=== PATIENT | male | born 1945 | race Caucasian/White ===

== ENCOUNTER 2018-09-21 23:43 | Observation (INO) ==
[2018-09-22] MEDS ORDERED: Naloxone 0.4 MG/ML INJ IVP PRN (07:51)
[2018-09-22 08:40] LABS: Hemoglobin 13.1 g/dL (12.9-16.9); Mean Corpuscular HGB Conc 33.6 g/dL (31.6-35.5); Mean Corpuscular Hemoglobin 30.6 pg (28.0-33.3); Mean Corpuscular Volume 91.1 fL (83.0-100.0); Mean Platelet Volume 9.2 fL (9.4-12.4); Platelet Count 161 K/mcL (140-400); Red Blood Count 4.28 M/mcL (4.19-5.50); Red Cell Distribution Width 13.4 % (11.5-14.5)
[2018-09-22 09:00] LABS: BUN/Creatinine Ratio 13 (6-26); Blood Urea Nitrogen 12 mg/dL (8-23); Carbon Dioxide 23 mEq/L (23-29); Chloride 108 mEq/L (98-107); Glucose 97 mg/dL (70-105); Osmolality,Calculated 292 (280-300); Potassium 3.9 mEq/L (3.5-5.1); Sodium 141 mEq/L (136-145); eGFR For Non-African Americans > 60 (> 60)
--- NOTE | 2018-09-22 09:25 | Internal Med History&Physical ---
<Evin Trevino - Last Filed: 09/22/18 09:23> Date of Encounter: 09/22/18 Time of Encounter: 09:23 Internal Medicine - H&P: HPI Chief complaint: Constipation Admitted From: Hospital to Hospital Transfer Plans for Post Hospital Care: Home History of present illness: Mr. Lion is a 73 year old male history of CVA, hypertension, coronary artery disease, hyperlipidemia presents with chief complaint of constipation 7 days. Patient reports she has had cramping abdominal pain and has been unable to have a bowel movement. He is tried suppositories at home without success. He has a history of hemorrhoids and does have some blood when wiping after having bowel movement. He initially presented to [facility]. Patient had a rectal exam by emergency department and [facility] and was found to have large block of large pellet stool in the rectal vault and underwent soapsuds enema. Thereafter he had a large maroon-colored stool. Due to this patient was transferred to [facility] for serial hemoglobins and further evaluation and possible endoscopy. His initial hemoglobin was 13. He is hemodynamically stable. He denies previous endoscopies. Patient is on Plavix and aspirin for history of CVA. Past Med Surg Social Fam HX - Past Medical History Medical history: CVA, hyperlipidemia, hypertension, myocardial infarction Psychiatric history: no psych history - Past Surgical History Surgical History: appendectomy - Social History Smoking Status: Former smoker Smokeless Tobacco Status: No Alcohol use: occasionally Drug use: none - Family History Father Adopted: [place]: BRITNEY Family Member Ethnicity: Non- Living Status: Age at : 63 Cause of : HEART PROBLEMS - HIGH HLD Hx Family Cardiac Disorders: Yes Hx Family Respiratory Disorders: No Hx Family Cancer: No Hx Family GI Disorders: No Hx Family Genitourinary Disorders: No Hx Family Endocrine Disorder: No Hx Family Musculoskeletal Disorders: No Hx Family Neuromuscular Disorders: No Hx Family Neurologic Disorders: No Hx Family HEENT Disorders: No Hx Family Autoimmune Disorders: No Hx Family Reproductive Disorders: No Hx Family Psychosocial Disorders: No Hx Family Medical Disorders: No Internal Medicine - H&P: Meds Clopidogrel [Plavix] 75 mg PO DAILY 06/21/18 [History] Aspirin [Lo-Dose Aspirin EC] 81 mg PO DAILY 09/21/18 [History] Atorvastatin [Lipitor] 20 mg PO HS 09/21/18 [History] Cholecalciferol (D-3) [Vitamin D] 1,000 unit PO DAILY 09/21/18 [History] Docusate [Colace] 200 mg PO BID 09/21/18 [History] Lisinopril [Zestril] 20 mg PO DAILY 09/22/18 [History] Allergy/AdvReac Type Severity Reaction Status Date / Time No Known Allergies Allergy Verified 06/21/18 06:51 All Systems PM: A 10-system review of systems was performed and is negative for pertinent findings except as documented above in the HPI. Review of systems: Constitutional: Denies fever, chills HEENT: Denies headache, trauma, blurry vision, eye discharge, ear pain, ear discharge neck pain, sore throat, rhinorrhea Heart: Denies chest pain palpitations, LE edema Lungs: Denies shortness of breath cough Abdomen: Reports abdominal pain , constipation. Denies nausea vomiting diarrhea MSK: Denies back pain, falls, joint pain Kidney: Denies dysuria, hematuria Skin: Denies rash, ulcers Neuro: Denies numbness and tingling Psych: denies axniety, depression - Constitutional Vitals: Temp Pulse Resp BP Pulse Ox 97.6 F 71 16 183/80 99 09/22/18 06:38 09/22/18 06:38 09/22/18 06:38 09/22/18 06:38 09/22/18 06:38 Exam: General: pleasant, without distress HEENT: Head atraumatic, normocephalic, EOMI, PERRL, absent ear discharge or trauma, Moist Mucous Membranes, uvula midline Neck: nontender to palpation, absent lymphadenopathy, Cardiovascualr: Regular rate and rhythm with no murmur, absent gallops or rubs, absent pedal edema, radial pulses 2 out of 4 Lungs: Clear to auscultation bilaterally, not in respiratory distress Abdomen: Soft nontender, nondistended positive bowel sounds, absent hepatomegaly Skin: warm and dry, absent rash, absent open wounds and nodules MSK: absent clubbing, cyanosis, joints without swelling Neuro: Chronic: Left upper extremity strength 3/5, left lower extremity strength 3/5, left facial droop, slurred speech. Patient's right upper and lower extremity strength is 5 out of 5 Psych: good insight and judgment Internal Med - H&P Results - Labs CBC & Chem 7: 09/22/18 08:22 09/22/18 08:22 Labs: Short CBC 09/22/18 Range/Units 08:22 WBC 11.8 H D (4.3-11.1) K/mcL Hgb 13.1 (12.9-16.9) g/dL Hct 39.0 (37.5-50.1) % Plt Count 161 (140-400) K/mcL BMP 09/22/18 08:22 Sodium 141 Potassium 3.9 Chloride 108 H Carbon Dioxide 23 BUN 12 Creatinine 0.90 Glucose 97 Calcium 9.0 - Assessment and Plan (1) Rectal bleeding Current Visit: Yes Status: Acute Assessment and plan: Patient presents with chief complaint of constipation and underwent soapsuds enema and thereafter had a bloody bowel movement. He is hemodynamically stable PT/INR within normal limits CT abdomen and pelvis showed focal hyperattenuation at the rectum/anus, unremarkable fecal burden at the rectosigmoid colon Started on Protonix, nothing by mouth, surgery consulted for evaluation. (2) History of CVA (cerebrovascular accident) Current Visit: Yes Status: Acute Assessment and plan: Patient has a history of CVA with residual left-sided deficits as noted on exam Were holding aspirin and Plavix secondary to bleeding Continue statin (3) Hypertension Current Visit: Yes Status: Acute Assessment and plan: Patient had elevated blood pressure of 183/80 this morning We will resume lisinopril When necessary labetalol Qualifiers: Hypertension type: essential hypertension Qualified Code(s): I10 - Essential (primary) hypertension (4) Constipation Current Visit: Yes Status: Acute Assessment and plan: There is a concern that patient has not had a colonoscopy since turning 51. Furthermore the CT scan shows a hyperattenuation and patient presented with constipation. concern is if this could be a mass causing constipation instead of large stool burden. Surgery consulted. Qualifiers: Constipation type: unspecified constipation type Qualified Code(s): K59.00 - Constipation, unspecified (5) DVT prophylaxis Current Visit: Yes Status: Acute Assessment and plan: EPCDs (6) HLD (hyperlipidemia) Current Visit: Yes Status: Acute Assessment and plan: Continue atorvastatin Qualifiers: Hyperlipidemia type: pure hypercholesterolemia Qualified Code(s): E78.00 - Pure hypercholesterolemia, unspecified; E78.0 - Pure hypercholesterolemia - Time Spent With Patient Total time spent is greater than 50% in coordination of care (as documented) at patient's floor/unit and/or counseling patient: <Madeleine Mcadams - Last Filed: 09/22/18 12:53> Date of Encounter: 09/22/18 Internal Medicine - H&P: HPI History of present illness: Mr. Lion is a 73 year old male All Systems PM: A 10-system review of systems was performed and is negative for pertinent findings except as documented above in the HPI. - Constitutional Vitals: Temp Pulse Resp BP Pulse Ox 97.7 F 83 16 164/78 96 09/22/18 11:05 09/22/18 11:05 09/22/18 11:05 09/22/18 11:05 09/22/18 11:05 Internal Med - H&P Results - Labs CBC & Chem 7: 09/22/18 08:22 09/22/18 08:22 Labs: Short CBC 09/22/18 Range/Units 08:22 WBC 11.8 H D (4.3-11.1) K/mcL Hgb 13.1 (12.9-16.9) g/dL Hct 39.0 (37.5-50.1) % Plt Count 161 (140-400) K/mcL BMP 09/22/18 08:22 Sodium 141 Potassium 3.9 Chloride 108 H Carbon Dioxide 23 BUN 12 Creatinine 0.90 Glucose 97 Calcium 9.0 - Time Spent With Patient Total time spent is greater than 50% in coordination of care (as documented) at patient's floor/unit and/or counseling patient: - Attending Attestation I examined this patient and my medical decision-making was reviewed with the Resident Physician Dr Trevino. I agree with the documented findings, disposition and treatment plan as described except to the extent set forth below. Mr Lion has pmhx CVA with residual left weakness, facial droop and dysphasia. He presented with adb pain and constipation to OSH. He had CT scan showing rectal hyperattneuation and stool. He has addl history of hemorrhoids. Soap suds enema preformed at OSH with bloody water after enema. He was transferred to [facility] for further work up and treatment Awake and in no distress. denies bleeding further, abd pain, n/v/diarrhea. No fevers or chills. denies presyncope, cp or sob. gen- awake, nad, appears stated age cv- rrr, no murmurs appreciated, no le edema lungs- ctabl, no wheezing or rhonchi, normal resp effort abd- soft, nt, nd decreased bs skin- warm, dry, no pallor Possible Rectal Bleeding Hx hemorrhoids Constipation Rectal thickening on CT scan -surg consult to see if needs scope--hemorrhoidal bleeding vs mass or other gib? -PPI, npo, serial h/hs -hold home asa and plavix at this time while cont to monitor HTN- BP elevated, cont home meds and monitor for adjustments further idagnoses and plan as noted by resident
[2018-09-22] MEDS: Lisinopril 20 MG TABLET PO SCH (09:49)
--- NOTE | 2018-09-22 11:05 | AcuteCare Surgery Consult Note ---
<Juhi Cherry - Last Filed: 09/22/18 14:40> Date of Encounter: 09/22/18 Time of Encounter: 11:02 Assessment and Plan (1) Lower GI bleeding Current Visit: Yes Status: Acute Is a 73-year-old male with past medical history significant for CVA, AL, hypertension, hyperlipidemia who initially presented in the [facility] ED complaining of constipation. Complaining of urge to defecate and cramping for the past week Patient additionally has history of hemorrhoids. Has noted specks of blood on toilet paper and toilet in the past. Managed with Colace 200 mg twice a day. He is additionally on aspirin and Plavix due to history of CVA. States he has never had endoscopy or colonoscopy in the past - Soapsuds enema was given in the ED, and maroon-colored blood emerge from the rectum afterwards along with stool - CT of the abdomen and pelvis did show focal hyperattenuation of the rectum/anus suggestive of being related to bleeding hemorrhoids. However underlying mass could not be ruled out. - Hb/Hct = 13.5/40.1 - Currently no acute distress, resting comfortably at bedside PLAN: Given the patient is currently asymptomatic, and his hemoglobin has remained stable after 2 different blood draws, it is unlikely the patient needs any fu rther intervention at this time. - We will plan to have patient follow-up outpatient for routine colonoscopy - Monitor Hb/Hct; monitor for signs of hemodynamic instability; recommended at least 1 further CBC prior to discharge - Protonix BID - Stool softener twice a day - Patient may advance to regular diet at this time - Otherwise surgery will sign off at this time; please reconsult as necessary; patient may be discharged from a surgical standpoint History of Present Illness Consult date: 09/22/18 Reason for consult: other (GI bleed) Requesting physician: Evin Trevino History of present illness: This is a 73-year-old male with past medical history significant for CVA, AL, hypertension, hyperlipidemia who initially presented to [facility] ED complaining of constipation. Patient states that for the past 1 week he had been having cramping plus urge to defecate, but was unable to do so. He initially also noted that when he wiped himself, he would notice specks of blood on the toilet paper and drips of blood on the toilet. He has had this problem in the past, but has never thought much of it. States that he normally has bowel movements regularly with regular consistency. He does take docusate 200 mg twice a day, and did try a suppository prior to arrival without relief. Patient denied any fevers/chills, headaches, nausea, vomiting, hematemesis, dysuria, hematuria. Additionally he has not been taking any pain medications of recent. Initial exam at [facility] showed evidence of fecal impaction with brown stool, external hemorrhoids, tenderness. Patient was given soapsuds enema in the ED. After enema was given, patient began to have maroon-colored stool with passages of large amounts of brown stool. Patient was then given IV fluids and routine lab work was obtained. Patient's hemoglobin and hematocrit = 13.5/40.1. CT of the abdomen and pelvis did show focal hyperattenuation of the rectum/anus suggestive of being related to bleeding hemorrhoids. However underlying mass could not be ruled out. Pt was transferred to [facility] for further evaluation of lower GI bleeding, serial Hb/Hct, and start bowel regimen. Surgery was consulte d due to GI bleed. At time of my examination, patient is in no acute distress. States that he feel s fine. He has not had a bowel movement since yesterday in the [facility] ED. He denies any abdominal pain, nausea, vomiting at this time. He states that he has been passing gas. He does confirm that he takes aspirin and Plavix due to history of CVA. Pt states that he has never had endoscopy or colonoscopy in the past. Past Med Surg Social Fam HX - Past Medical History Attestation: Yes The following information was validated with the patient. Source: patient, old records reviewed Medical history: CVA, hyperlipidemia, hypertension, myocardial infarction Psychiatric history: no psych history - Past Surgical History Surgical History: appendectomy - Social History Smoking Status: Former smoker Smokeless Tobacco Status: No Alcohol use: occasionally Drug use: none - Family History Father Adopted: [place]: [place] Family Member Ethnicity: Non- Living Status: Age at : 64 Cause of : HEART PROBLEMS - HIGH HLD Hx Family Cardiac Disorders: Yes Hx Family Respiratory Disorders: No Hx Family Cancer: No Hx Family GI Disorders: No Hx Family Genitourinary Disorders: No Hx Family Endocrine Disorder: No Hx Family Musculoskeletal Disorders: No Hx Family Neuromuscular Disorders: No Hx Family Neurologic Disorders: No Hx Family HEENT Disorders: No Hx Family Autoimmune Disorders: No Hx Family Reproductive Disorders: No Hx Family Psychosocial Disorders: No Hx Family Medical Disorders: No Medications and Allergies Clopidogrel [Plavix] 75 mg PO DAILY 06/21/18 [History] Aspirin [Lo-Dose Aspirin EC] 81 mg PO DAILY 09/21/18 [History] Atorvastatin [Lipitor] 20 mg PO HS 09/21/18 [History] Docusate [Colace] 200 mg PO BID 09/21/18 [History] Ergocalciferol (VITAMIN D2) [Vitamin D] 400 unit PO DAILY 09/22/18 [History] Ibuprofen [Motrin] 400 mg PO TID PRN 09/22/18 [History] Lisinopril [Zestril] 20 mg PO DAILY 09/22/18 [History] Loratadine [Allergy Relief] 10 mg PO DAILY 09/22/18 [History] Allergy/AdvReac Type Severity Reaction Status Date / Time No Known Allergies Allergy Verified 09/22/18 15:19 Review of Systems All systems PM: reviewed and no additional remarkable complaints except as stated All systems PM: The remainder of the systems were reviewed and are negative - Constitutional no anorexia, no chills, no fatigue, no headache(s), no lethargy, no malaise - EENT Nose, mouth and throat: no dizziness, no headache(s), no nasal congestion - Cardiovascular no chest pain, no chest pain at rest, no chest pain with activity, no dyspnea, no dyspnea on exertion, no irregular heart rhythm, no radiating jaw, neck or arm pain, no lightheadedness, no palpitations, no rapid heart rate, no syncope - Respiratory no cough, no dyspnea, no wheezing - Gastrointestinal constipation, excessive flatus, hematochezia, no abdominal pain, no melena, no nausea, no vomiting - Genitourinary no dysuria, no hematuria - Musculoskeletal no back pain - Integumentary no rash - Neurological no behavioral changes, no confusion, no dizziness, no headache(s), no syncope, no weakness - Psychiatric no change in appetite - Endocrine no fatigue General Surgery Exam Initial Vital Signs Temp Pulse Resp BP Pulse Ox 98.0 F 87 16 179/77 99 09/22/18 04:05 09/22/18 04:05 09/22/18 04:05 09/22/18 04:05 09/22/18 04:05 - General physical appearance well developed, well nourished, no distress, no pain - Eyes normal ocular movement - ENT atraumatic, normocephalic - Neck trachea midline - Respiratory normal expansion, normal respiratory effort, clear to auscultation - Cardiovascular Cardiovascular exam: Present: RRR, regular rhythm, murmurs (2/6 systolic murmur noted at the right parasternal second intercostal space) - Expanded Cardiovascular Exam Peripheral pulses: 2+: Radial (L), Radial (R) - Abdomen Abdomen general surgery: Present: bowel sounds present, soft, non tender - Integumentary Integumentary general surgery: Present: warm and dry, no abnormal pigmentation - Neurologic Present: other (Left-sided deficits that have persisted since CVA in 2007) - Psychiatric Psychiatric general surgery: Present: A&Ox3, appropriate, oriented to person, oriented to place, oriented to time, speech is normal (Speech is slurred, but understandable), memory intact Exam Initial Vital Signs Temp Pulse Resp BP Pulse Ox 98.0 F 87 16 179/77 99 09/22/18 04:05 09/22/18 04:05 09/22/18 04:05 09/22/18 04:05 09/22/18 04:05 Results - Labs 09/22/18 08:22 09/22/18 08:22 Abnormal lab results WBC 11.8 K/mcL (4.3-11.1) H D 09/22/18 08:22 MPV 9.2 fL (9.4-12.4) L 09/22/18 08:22 Chloride 108 mEq/L (98-107) H 09/22/18 08:22 Diabetes panel 09/22/18 Range/Units 08:22 Sodium 141 (136-145) mEq/L Potassium 3.9 (3.5-5.1) mEq/L Chloride 108 H (98-107) mEq/L Carbon Dioxide 23 (23-29) mEq/L BUN 12 (8-23) mg/dL Creatinine 0.90 (0.70-1.30) mg/dL Glucose 97 (70-105) mg/dL Calcium 9.0 (8.6-10.3) mg/dL Calcium panel 09/22/18 Range/Units 08:22 Calcium 9.0 (8.6-10.3) mg/dL Pituitary panel 09/22/18 Range/Units 08:22 Sodium 141 (136-145) mEq/L Potassium 3.9 (3.5-5.1) mEq/L Chloride 108 H (98-107) mEq/L Carbon Dioxide 23 (23-29) mEq/L BUN 12 (8-23) mg/dL Creatinine 0.90 (0.70-1.30) mg/dL Glucose 97 (70-105) mg/dL Calcium 9.0 (8.6-10.3) mg/dL Adrenal panel 09/22/18 Range/Units 08:22 Sodium 141 (136-145) mEq/L Potassium 3.9 (3.5-5.1) mEq/L Chloride 108 H (98-107) mEq/L Carbon Dioxide 23 (23-29) mEq/L BUN 12 (8-23) mg/dL Creatinine 0.90 (0.70-1.30) mg/dL Glucose 97 (70-105) mg/dL Calcium 9.0 (8.6-10.3) mg/dL All other labs normal. - Imaging CT scan - abdomen: report reviewed CT scan - pelvis: report reviewed (CT of the abdomen and pelvis did show focal hyperattenuation of the rectum/anus suggestive of being related to bleeding hemorrhoids. However underlying mass could not be ruled out.) Consult Discharge Plan - Plan Referrals: NONE,PCP [Primary Care Provider] - <Trace Patterson - Last Filed: 09/23/18 06:39> Date of Encounter: 09/22/18 Review of Systems All systems PM: The remainder of the systems were reviewed and are negative General Surgery Exam Initial Vital Signs Temp Pulse Resp BP Pulse Ox 98.0 F 87 16 179/77 99 09/22/18 04:05 09/22/18 04:05 09/22/18 04:05 09/22/18 04:05 09/22/18 04:05 Exam Initial Vital Signs Temp Pulse Resp BP Pulse Ox 98.0 F 87 16 179/77 99 09/22/18 04:05 09/22/18 04:05 09/22/18 04:05 09/22/18 04:05 04/21/19 04:05 Results - Labs 09/23/18 04:34 09/22/18 08:22 Abnormal lab results WBC 11.8 K/mcL (4.3-11.1) H D 09/22/18 08:22 Hgb 12.7 g/dL (12.9-16.9) L 09/23/18 04:34 MPV 9.2 fL (9.4-12.4) L 09/22/18 08:22 Chloride 108 mEq/L (98-107) H 09/22/18 08:22 Diabetes panel 09/22/18 Range/Units 08:22 Sodium 141 (136-145) mEq/L Potassium 3.9 (3.5-5.1) mEq/L Chloride 108 H (98-107) mEq/L Carbon Dioxide 23 (23-29) mEq/L BUN 12 (8-23) mg/dL Creatinine 0.90 (0.70-1.30) mg/dL Glucose 97 (70-105) mg/dL Calcium 9.0 (8.6-10.3) mg/dL Calcium panel 09/22/18 Range/Units 08:22 Calcium 9.0 (8.6-10.3) mg/dL Pituitary panel 09/22/18 Range/Units 08:22 Sodium 141 (136-145) mEq/L Potassium 3.9 (3.5-5.1) mEq/L Chloride 108 H (98-107) mEq/L Carbon Dioxide 23 (23-29) mEq/L BUN 12 (8-23) mg/dL Creatinine 0.90 (0.70-1.30) mg/dL Glucose 97 (70-105) mg/dL Calcium 9.0 (8.6-10.3) mg/dL Adrenal panel 09/22/18 Range/Units 08:22 Sodium 141 (136-145) mEq/L Potassium 3.9 (3.5-5.1) mEq/L Chloride 108 H (98-107) mEq/L Carbon Dioxide 23 (23-29) mEq/L BUN 12 (8-23) mg/dL Creatinine 0.90 (0.70-1.30) mg/dL Glucose 97 (70-105) mg/dL Calcium 9.0 (8.6-10.3) mg/dL All other labs normal. - Attending Attestation I examined this patient and my medical decision-making was reviewed with the Resident Physician. I agree with the documented findings, disposition and treatment plan as described except to the extent set forth below. I reviewed the above assessment and evaluation with the resident and agree with the above plan. Patient presented to the hospital due to constipation and after having an enema he had rectal bleeding. He states he has never had rectal bleeding in the past. He denied any abdominal pain during that episode and has never had a colonoscopy. He denies any family history colon cancer. On examination is nontender with no symptoms of nausea or vomiting. No palpable masses identified. Hemoglobin has been stable at approximately 12.7. I think it would be reasonable to repeat the CBC either later today or tomorrow morning and if normal have the patient follow-up with surgery as an outpatient for colonoscopy. I think his rectal bleeding is likely due to the hard stool that passed through the colon causing irritation and disruption of the mucosa. Will follow from a distance. Thank you very much.
--- NOTE | 2018-09-22 15:26 | Discharge Summary ---
<Evin Trevino - Last Filed: 09/23/18 08:52> - NOTES TO OUTPATIENT PROVIDER Notes to Outpatient Provider: will need outpatient colonoscopy Orders not resulted at time of discharge: Pending orders 09/22/18 15:23 H/H [Hemoglobin and Hematocrit] [HEME] Stat 09/23/18 04:00 H/H [Hemoglobin and Hematocrit] [HEME] AM 0400 Date of Encounter: 09/23/18 Time of Encounter: 07:27 - Discharge Diagnosis (1) Rectal bleeding Priority: Primary Status: Resolved (2) History of CVA (cerebrovascular accident) Priority: Secondary Status: Chronic (3) Hypertension Priority: Secondary Status: Chronic Qualifiers: Hypertension type: essential hypertension Qualified Code(s): I10 - Essential (primary) hypertension (4) Constipation Priority: Secondary Status: Inactive Qualifiers: Constipation type: unspecified constipation type Qualified Code(s): K59.00 - Constipation, unspecified (5) DVT prophylaxis Priority: Secondary Status: Acute (6) HLD (hyperlipidemia) Priority: Secondary Status: Acute Qualifiers: Hyperlipidemia type: pure hypercholesterolemia Qualified Code(s): E78.00 - Pure hypercholesterolemia, unspecified; E78.0 - Pure hypercholesterolemia Hospital course: Mr. Lion is a 73 year old male history of CVA, hypertension, coronary artery disease, hyperlipidemia presents with chief complaint of constipation 7 days. Patient reports she has had cramping abdominal pain and has been unable to have a bowel movement. He is tried suppositories at home without success. He has a history of hemorrhoids and does have some blood when wiping after having bowel movement. He initially presented to [facility]. Patient had a rectal exam by emergency department and [facility] and was found to have large block of large pellet stool in the rectal vault and underwent soapsuds enema. Thereafter he had a l arge maroon-colored stool. Due to this patient was transferred to [facility] for serial hemoglobins and further evaluation and possible endoscopy. His initial hemoglobin was 13. He is hemodynamically stable. He denies previous endoscopies. Patient is on Plavix and aspirin for history of CVA. Today's surgery saw patient. Patient was given stool softener and a large bowel movement. He recommended outpatient colonoscopy. The recommended if hemoglobin is stable he is able to be discharged. Patient's repeat hemoglobin was stable. Discharge discussed with: patient, family - Time Spent with Patient Total time spent providing and/or coordinating discharge services: - Discharge Medications Prescriptions: New Docusate [Colace] 100 mg PO BID #60 capsule Continue Lisinopril [Zestril] 20 mg PO DAILY Ergocalciferol (VITAMIN D2) [Vitamin D] 400 unit PO DAILY Ibuprofen [Motrin] 400 mg PO TID PRN PRN Reason: Mild To Moderate Pain Loratadine [Allergy Relief] 10 mg PO DAILY Clopidogrel [Plavix] 75 mg PO DAILY Docusate [Colace] 200 mg PO BID Atorvastatin [Lipitor] 20 mg PO HS Aspirin [Lo-Dose Aspirin EC] 81 mg PO DAILY Home Medications: Clopidogrel [Plavix] 75 mg PO DAILY 06/21/18 [History] Aspirin [Lo-Dose Aspirin EC] 81 mg PO DAILY 09/21/18 [History] Atorvastatin [Lipitor] 20 mg PO HS 09/21/18 [History] Docusate [Colace] 200 mg PO BID 09/21/18 [History] Ergocalciferol (VITAMIN D2) [Vitamin D] 400 unit PO DAILY 09/22/18 [History] Ibuprofen [Motrin] 400 mg PO TID PRN 09/22/18 [History] Lisinopril [Zestril] 20 mg PO DAILY 09/22/18 [History] Loratadine [Allergy Relief] 10 mg PO DAILY 09/22/18 [History] Docusate [Colace] 100 mg PO BID #60 capsule 09/23/18 [Rx] Allergies/Adverse Reactions: Allergy/AdvReac Type Severity Reaction Status Date / Time No Known Allergies Allergy Verified 09/22/18 15:19 Date of admission: 09/22/18 03:48 Primary care physician: PCP NONE Consults: 09/22/18 07:53 Consult to Surgery [CONS] Routine Consulting Provider: Acute Care Surgery Reason for Consult: gi bleed. Call Completed: Yes Discharging clinician: Evin Trevino Anticipated date of discharge: 09/22/18 - Constitutional Vitals: Temp Pulse Resp BP Pulse Ox 97.4 F L 77 16 170/74 97 09/22/18 14:35 09/22/18 14:35 09/22/18 14:35 09/22/18 14:35 09/22/18 14:35 Exam: General: pleasant, without distress HEENT: Head atraumatic, normocephalic, EOMI, PERRL, absent ear discharge or trauma, Moist Mucous Membranes, uvula midline Neck: nontender to palpation, absent lymphadenopathy, Cardiovascualr: Regular rate and rhythm with no murmur, absent gallops or rubs, absent pedal edema, radial pulses 2 out of 4 Lungs: Clear to auscultation bilaterally, not in respiratory distress Abdomen: Soft nontender, nondistended positive bowel sounds, absent hepatomegaly Skin: warm and dry, absent rash, absent open wounds and nodules MSK: absent clubbing, cyanosis, joints without swelling Neuro: Chronic: Left upper extremity strength 3/5, left lower extremity strength 3/5, left facial droop, slurred speech. Patient's right upper and lower extremity strength is 5 out of 5 Psych: good insight and judgment - Patient Status Disposition: Home, Self-Care Condition: Good Functional capacity at discharge: independent ambulation Overall status at discharge: patient is progressing back to baseline - Discharge Instructions Instructions: Rectal Bleeding (DC), Chronic Hypertension (DC) Follow Up With: Antonina Granger MD [Non-Partnered Physician] - 10/01/18 10:15 am - Diet and Activity Activity: increase activity as tolerated Diet: advance to your usual diet <Madeleine Mcadams - Last Filed: 09/23/18 12:59> Date of Encounter: 09/23/18 Hospital course: Mr. Lion is a 73 year old male - Time Spent with Patient Total time spent providing and/or coordinating discharge services: Time spent: Greater than 30 minutes (40 min) Date of admission: 09/22/18 03:48 Primary care physician: PCP NONE Consults: 09/22/18 07:53 Consult to Surgery [CONS] Routine Consulting Provider: Acute Care Surgery Reason for Consult: gi bleed. Call Completed: Yes - Constitutional Vitals: Temp Pulse Resp BP Pulse Ox 98.0 F 84 19 169/80 98 09/23/18 06:51 09/23/18 06:51 09/23/18 06:51 09/23/18 06:51 09/23/18 06:51 - Patient Status Overall status at discharge: patient is back to baseline - Attending Attestation I examined this patient and my medical decision-making was reviewed with the Resident Physician Dr Trevino. I agree with the documented findings, disposition and treatment plan as described except to the extent set forth below. Mr Lion was observed for rectal bleeding and constipation Awake , pleasant feeling like himself, had large bm last night, no blood, no abd pain. no dizziness , sob or fatigue, eager for dc to home, dc plan discussed in detail gen- awake, nad, appears stated age cv- rrr, no murmurs, no le edema lungs- ctabl, no wheezing or rhonchi, normal resp effort on room air abd- soft, nt, nd, + bs skin- no pallor Rectal Bleeding suspected 2/2 hemorrhoids Constipation, resolved Rectal thickening on CT scan -surg consulted and rec for outpt cscope, bleeding most likely from hard sto ol/hemorrhoids -PPI can be dc -cont colace on dc -hemoglobins remained stable -cont home asa and plavix for CVA -fu with pcp to arrange outpt colonoscopy HTN- now stable, cont home meds, fu outpt with pcp further diagnoses and plan as noted by resident time spent on dc 40 min
[2018-09-22 15:57] LABS: Hematocrit 38.5 % (37.5-50.1); Hemoglobin 12.7 g/dL (12.9-16.9)
[2018-09-22] MEDS ORDERED: *HR* Labetalol 20 MG/4 ML SYRINGE IVP ONE (16:28)
[2018-09-22] MEDS: Pantoprazole 40 MG VIAL IVP SCH (16:47)
[2018-09-23 05:10] LABS: Hematocrit 38.1 % (37.5-50.1); Hemoglobin 12.7 g/dL (12.9-16.9)
[2018-09-23 06:53] VITALS: BP 169/80
[2018-09-23] MEDS: Pantoprazole 40 MG VIAL IVP SCH (06:59)
[2018-09-23] MEDS: Lisinopril 20 MG TABLET PO SCH (07:26)
== END 2018-09-23 11:36 | disposition home or self-care (01) ==
LOC: 3BNU → SUATTDRO 09-22 03:48
PROVIDERS: ADMIT Family Medicine; ATTEND Internal Medicine